=== PATIENT | female | born 1960 | race Caucasian/White ===

== ENCOUNTER 2020-04-07 15:51 | Inpatient (IN) | payer OTHER, SELFPAY ==
--- NOTE | ~2020-04-07 | XR_ITS ---
EXAMINATION: XR chest 1V portable DATE: 04/09/2020 06:03 INDICATION: Shortness of breath. COVID-19 pneumonia. TECHNIQUE: A single frontal view of the chest was obtained. COMPARISON: Chest single view 04/07/2020 FINDINGS: There are airspace opacities in all right lung zones and in left mid and lower lung zones. No pleural effusion or pneumothorax. The heart size is normal. IMPRESSION: 1. Diffuse lung disease with worsening on the right, consistent with pneumonia versus acute respirato ry distress syndrome (ARDS). Reviewed, dictated and finalized at location A. IMPRESSION: 1. Diffuse lung disease with worsening on the right, consistent with pneumonia versus acute respiratory distress syndrome (ARDS).
--- NOTE | ~2020-04-07 | XR_ITS ---
EXAMINATION: XR chest 1V portable INDICATION: Fever cough and shortness of breath, exposure to COVID TECHNIQUE: Portable AP chest at 1628 hours COMPARISON: None available FINDINGS: There are peripheral predominant airspace opacities of the lung bases and left midlung zone . No pleural effusion or pneumothorax is identified. The cardiomediastinal silhouette is normal. Thor acic dextroscoliosis is noted. IMPRESSION: 1. Bilateral airspace opacities in a distribution commonly reported with COVID-19 pneumonia. Reviewed, dictated and finalized at location A. IMPRESSION: 1. Bilateral airspace opacities in a distribution commonly reported with COVID- 19 pneumonia.
--- NOTE | ~2020-04-07 | XR_ITS ---
EXAMINATION: XR chest 1V portable DATE: 04/11/2020 05:53 INDICATION: Shortness of breath. COVID-19 pneumonia. TECHNIQUE: A single frontal view of the chest was obtained. COMPARISON: Chest single view 04/09/2020 FINDINGS: There are patchy airspace opacities in all right lung zones and in left mid and lower lung zones. No pleural effusion or pneumothorax. The heart size is normal. IMPRESSION: 1. Stable diffuse lung disease, consistent with pneumonia versus acute respiratory distress syndrome (ARDS). Reviewed, dictated and finalized at location A. IMPRESSION: 1. Stable diffuse lung disease, consistent with pneumonia versus acute respirat ory distress syndrome (ARDS).
[2020-04-07 16:04] VITALS: BP 123/84; PULSE 87; RESP 20; TEMP 37.2; O2SAT 97
--- NOTE | 2020-04-07 16:09 | ECG_ITS ---
Measurements Intervals [place] Rate: 86 P: 76 NM: 139 QRS: 20 QRSD: 92 T: 31 QT: 340 QTc: 409 Interpretive Statements SINUS RHYTHM BORDERLINE ST ABNORMALITY- DIFFUSE LEADS BORDERLINE ECG Electronically Signed On 04-08-2020 6:56:09 CDT by Truman Rubio D.O.
--- NOTE | 2020-04-07 16:50 | ED.FEVER ---
HPI - Fever General Chief Complaint: Fever <NICOLE Cordero Last Filed: 04/07/20 23:56> Stated Complaint: cough, fever, sob <NICOLE Cordero Last Filed: 04/07/20 23:56> Time Seen by Provider: 04/07/20 16:39 <NICOLE Cordero Last Filed: 04/07/20 23:56> Source: patient and family <NICOLE Cordero Last Filed: 04/07/20 23:56> Mode of arrival: wheelchair <NICOLE Cordero Last Filed: 04/07/20 23:56> Limitations: no limitations <NICOLE Cordero Last Filed: 04/07/20 23:56> History of Present Illness HPI Narrative: This is a 60-year-old woman that presents the emergency department for shortness of breath x5 days. Associated with fever, body aches and cough. Reports her was recently discharged from the hospital after being hospitalized for COVID pneumonia. Reports she has finished a course of azithromycin without relief. Reports she is currently taking Plaquenil. <NICOLE Cordero Last Filed: 04/07/20 23:56> Related Data Home Medications: Home Medications Medication Instructions Recorded Confirmed amitriptyline 25 mg PO TID 04/07/20 04/07/20 diazepam 2 mg PO Q6-8H PRN 04/07/20 04/07/20 esomeprazole magnesium 40 mg PO DAILY 04/07/20 04/07/20 hydroxychloroquine 400 mg PO DAILY 04/07/20 04/07/20 mometasone-formoterol [Dulera] 2 puff INHALATION BID 04/07/20 04/07/20 montelukast 10 mg PO DAILY 04/07/20 04/07/20 tramadol 50 mg PO Q6H PRN 04/07/20 04/07/20 <NICOLE Cordero Last Filed: 04/07/20 23:56> Allergies/Adverse Reactions: Allergies Allergy/AdvReac Type Severity Reaction Status Date / Time Sulfa (Sulfonamide Allergy Itching Verified 04/07/20 17:27 Antibiotics) <Marlin Santoyo PA-C - Last Filed: 04/07/20 23:56> Review of Systems Review of Systems: Narrative: CONSTITUTIONAL: Reports fever, chills CARDIOVASCULAR: Denies chest pain RESPIRATORY: Reports cough and dyspnea. GASTROINTESTINAL: Reports nausea NEUROLOGIC: Reports weakness. <Marlin Santoyo PA-C - Last Filed: 04/07/20 23:56> All systems reviewed & are unremarkable except as noted in HPI and below <Marlin Santoyo PA-C - Last Filed: 04/07/20 23:56> [facility] Past Medical History Medical History: Medical History (Updated 04/07/20 @ 23:56 by Marlin Santoyo PA-C) Atypical migraine Chronic GERD Generalized anxiety disorder History of mitral valve prolapse History of reactive airway disease <Marlin Santoyo PA-C - Last Filed: 04/07/20 23:56> Surgical History Surgical History: Surgical History (Updated 04/07/20 @ 22:02 by Mel Arvizu NP) History of appendectomy History of tonsillectomy Hx of cholecystectomy <Marlin Santoyo PA-C - Last Filed: 04/07/20 23:56> Family History Family History: Family History (Updated 04/07/20 @ 22:03 by Mel Arvizu NP) Father Heart disease Sibling Hypertension <Marlin Santoyo PA-C - Last Filed: 04/07/20 23:56> Social History Social History: Social History (Updated 04/07/20 @ 22:14 by Mel Arvizu NP) Social History: 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 She lives with her who is also registered nurse. She has 2 biological children and her has 2 children as well. The patient desires to be a full code. She desires to have her has been as the power trial attorney for healthcare. Patient stated that she smoked when she was in nursing school about half a pack a cigarettes a day. And has quit since then. No alcohol marijuana or illicit drugs. Smoking packs per day: 0.5 Smoking cigarettes per day: 10.0 Years smoked: 5 Smoking pack-years: 2.50 Smoking status: Former smoker Tobacco type: cigarettes Alcohol intake: former Substance use: never Living arrangements: with family Occupation/Education: occupation Gender identity (if verbalized by the patient): Female Spiritual care concerns: No
[2020-04-07 17:01] LABS: Basophils Percent Auto 0.2 % (0.2-1.2); Eosinophils Percent Auto 0.2 % (0-4.4); Hematocrit 39.8 % (37.0-47.0); Hemoglobin 12.3 g/dL (12.0-15.0); Immature Granulocyte Absolute 0.04 K/mm3 (0.00-0.031); Immature Granulocyte Percent A 0.4 % (0-0.5); Lymphocytes Absolute Auto 0.65 K/mm3 (0.9-3.2); Lymphocytes Percent Auto 6.4 % (18.3-44.2); Mean Corpuscular HGB Conc 30.9 g/dl (32-36); Mean Corpuscular Hemoglobin 26.3 pg (26-34); Mean Corpuscular Volume 85.2 fl (80-100); Mean Platelet Volume 9.9 fl (7.4-10.4); Monocytes Absolute Auto 0.3 K/mm3 (0.1-0.6); Monocytes Percent Auto 2.9 % (2.6-8.5); Neutrophils Absolute Auto 9.1 K/mm3 (1.3-6.7); Neutrophils Percent Auto 89.9 % (45.5-73.1); Platelet Count Result 372 k/mm3 (150-375); Red Blood Count 4.67 M/mm3 (4.2-5.4); Red Cell Distribution Width 15.3 % (11.5-14.5); White Blood Count 10.1 K/mm3 (4.5-10.0)
[2020-04-07] MEDS: ONDANSETRON INJ 4 MG/2 ML VIAL IV PUSH (17:02)
[2020-04-07 17:11] LABS: Prothrombin Time 13.3 Seconds (11.1-14.7)
[2020-04-07 17:12] LABS: Partial Thromboplastin Time 31.8 SECONDS (22.3-36.8)
[2020-04-07 17:13] LABS: Lactic Acid Reflex 1.3 mmol/L (0.7-2.1)
[2020-04-07 17:14] LABS: D Dimer 0.58 ug/mL (<0.48)
[2020-04-07 17:26] LABS: Troponin I < 0.012 ng/mL (0.000-0.034)
[2020-04-07 17:31] LABS: Alanine Aminotransferase 48 U/L (4-35); Alkaline Phosphatase 214 U/L (38-126); Aspartate Amino Transferase 71 U/L (14-36); Bilirubin,Total 0.6 mg/dL (0.2-1.3); Blood Urea Nitrogen 13 mg/dL (7-17); CRP > 9.0 mg/dL (<1.0); Calcium 8.8 mg/dL (8.4-10.2); Carbon Dioxide 28 mmol/L (22-30); Chloride 102 mmol/L (98-107); Estimated CRCL calculation 79 ml/min; Estimated Glomerular Filt Rate > 60; Glucose 105 mg/dL (65-105); Lactate Dehydrogenase 991 U/L (313-618); Potassium 3.3 mmol/L (3.4-5.0); Sodium 137 mmol/L (137-145)
[2020-04-07 17:33] LABS: Alveolar/Arterial O2 Gradient 98.2 mmHg; Base Excess ABG 2.6 mEq/l (+/-2.0); Carboxyhemoglobin 0.7 % THb (0-2.0); Fractional Inspired Oxygen 28 %; HCO3 ABG 25.4 mEq/l (22.0-26.0); Methemoglobin ABG 0.3 %THb (0-1.5); Oxygen Content ABG 15.5 %vol (16.0-22.0); Oxygen Saturation ABG 93.9 % (95.0-100.0); PCO2 ABG 33.1 mmHg (35.0-45.0); PO2 ABG 62.4 mmHg (80.0-100.0); PO2 FiO2 Ratio Arterial Blood 2.23 %; pH ABG 7.503 (7.350-7.450)
[2020-04-07 17:34] LABS: Device NASAL CANNULA; Modified Allen's Test Pass; Site Drawn RIGHT BRACHIAL
[2020-04-07 17:40] VITALS: BP 103/69; PULSE 87; RESP 20; O2SAT 95
[2020-04-07] MEDS: POTASSIUM CHLORIDE 20 MEQ TABLET 40 MEQ PO (18:47)
[2020-04-07 21:45] VITALS: PULSE 74
[2020-04-07 22:00] VITALS: BP 108/76; PULSE 77; RESP 24; TEMP 36.6; O2SAT 95
--- NOTE | 2020-04-07 22:01 | PM.IMHP ---
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 The patient stated that her was just discharged to home from this hospital on oxygen with a positive COVID test. Her had been exposed to covid 19 during a code. The patient has been running a fever for 5 days. She has had a nonproductive cough. She says her stomach feels upset but she thinks it is just because she has not eaten. No nausea vomiting otherwise. She has body aches and chills. She was short of breath. For primary care doctor gave her an inhaler due to her history of having reactive airway disease. She also has already completed dose of a Z-Solitario. She said that upsets her stomach. The patient is already taking Plaquenil. Her liver enzymes are elevated. Her chest x-ray was read as bilateral airspace opacities in the distribution calmly reported with covid 19 pneumonia. O2 was applied at 2 L per nasal cannula. COVID test is pending and patient was placed in isolation. Was given a Zithromax and Rocephin. She is also given Valium in the emergency room. She was given Tylenol for fever as well. I discussed this case with the circuit court magistrate who stated that we should not continue the a Zithromax and as it was stay and her system for 1 month. She was given oral potassium in the emergency room. Her LDH was noted to be 991. C reactive protein greater than 9. The patient stated she was waiting for her appointment to take the COVID test. She was not able to get in to be tested any sooner. She said the test for appointment. Date of service 04/07/2020 Patient stated she has a sore throat but that is only due to dry mouth. Review of Systems Review of Systems: All systems reviewed & are unremarkable except as noted in HPI and below Constitutional: Constitutional: Reports as per HPI and Reports no additional constitutional complaints Eyes: Eyes: Reports as per HPI and Reports no additional eye complaints ENT: Reports system reviewed and no additional complaints, except as documented and Reports Normal hearing present Cardiovascular: Cardiovascular: Reports no additional cardiovascular complaints Respiratory: Respiratory: Reports no additional respiratory complaints and Reports no additional respiratory complaints Gastrointestinal: Gastrointestinal: Reports as per HPI and Reports no additional gastrointestinal complaints Musculoskeletal: Musculoskeletal: Reports no additional musculoskeletal complaints Integumentary/Breasts: Skin/Breast: Reports system reviewed and no additional complaints, except as docu and Reports as per HPI Neurologic: Reports system reviewed and no additional complaints, except as documented, Reports as per HPI and Reports Normal hearing present Psychiatric: Psychiatric: Reports no additional psychiatric complaints and Reports as per HPI Endocrine: Endocrine: Reports no additional endocrine complaints Hematologic/Lymphatic: Hematologic/Lymphatic: Reports no additional hematologic/lymphatic complaints Allergic/Immunologic: Allergic/Immunologic: Reports no additional allergic/immunologic complaints [facility] Past Medical History Medical History (Updated 04/07/20 @ 22:16 by Mel Arvizu NP) Atypical migraine Chronic GERD Generalized anxiety disorder History of mitral valve prolapse History of reactive airway disease Surgical History Surgical History (Updated 04/07/20 @ 22:02 by Mel Arvizu NP) History of appendectomy History of tonsillectomy Hx of cholecystectomy Family History Family History (Updated 04/07/20 @ 22:03 by Mel Arvizu NP) Father Heart disease Sibling Hypertension Social History Social History (Updated 04/07/20 @ 22:14 by Mel Arvizu NP) Social History: 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 She lives with her who
[2020-04-07 22:28] VITALS: BMI 32.5
--- NOTE | 2020-04-07 22:30 | ADMGEN ---
This patient, Clarisa Terry, was admitted to [facility] Surg Room 329-01. Patient/family oriented to hospital policies and general routines including ID bracelet, bed and alarms, visiting hours, pain management, procedures, bathroom and other care routines, personal items, smoking policy, room service/diet, and visiting hours. Valuables list has been completed. Information on how to activate the Rapid Response Team has been discussed. Patient/Family are encouraged to report perceived risks to care and to ask questions if they do not understand what they are told or what they should do.
[2020-04-08] VITALS (14 sets, daily range): BP systolic 97–114; BP diastolic 55–76; PULSE 75–92; RESP 18–24; TEMP 36.6–37.4; O2SAT 78–99
[2020-04-08] MEDS: ACETAMINOPHEN 325 MG TABLET 650 MG PO ×3 (01:24→23:17)
[2020-04-08 01:49] LABS: Add Urine Microscopic? YES; Appearance Urine Clear (Clear); Bacteria Urine Trace /hpf; Bilirubin Urine Negative (Negative); Blood Urine Negative (Negative); Color Urine Yellow (Yellow); Glucose Urine UA Negative (Negative); Ketones Urine Trace mg/dL (Negative); Leukocyte Esterase Ur Negative LEU/UL (Negative); Mucus Urine Rare /lpf; Nitrate Urine Negative (Negative); Protein Urine 1+ mg/dL (Negative); RBC Urine 0-2 /hpf (0-2); Specific Grav Ur 1.018 (1.001-1.035); Squamous Epithelial Cell Urine Few /hpf (Few); Urobilinogen Urine Negative mg/dL (<2.0); WBC Urine 0-3 /hpf
[2020-04-08 06:00] LABS: Basophils Percent Auto 0.1 % (0.2-1.2); Eosinophils Percent Auto 0.4 % (0-4.4); Hematocrit 35.7 % (37.0-47.0); Immature Granulocyte Absolute 0.03 K/mm3 (0.00-0.031); Immature Granulocyte Percent A 0.4 % (0-0.5); Lymphocytes Absolute Auto 0.93 K/mm3 (0.9-3.2); Lymphocytes Percent Auto 13.2 % (18.3-44.2); Mean Corpuscular HGB Conc 30.8 g/dl (32-36); Mean Corpuscular Hemoglobin 25.9 pg (26-34); Mean Platelet Volume 9.2 fl (7.4-10.4); Monocytes Absolute Auto 0.3 K/mm3 (0.1-0.6); Monocytes Percent Auto 4.8 % (2.6-8.5); Neutrophils Absolute Auto 5.7 K/mm3 (1.3-6.7); Neutrophils Percent Auto 81.1 % (45.5-73.1); Platelet Count Result 367 k/mm3 (150-375); Red Blood Count 4.25 M/mm3 (4.2-5.4); Red Cell Distribution Width 14.9 % (11.5-14.5); White Blood Count 7.1 K/mm3 (4.5-10.0)
[2020-04-08 06:24] LABS: Alanine Aminotransferase 43 U/L (4-35); Albumin Level 3.5 g/dL (3.5-5.1); Alkaline Phosphatase 179 U/L (38-126); Aspartate Amino Transferase 55 U/L (14-36); Bilirubin,Total 0.4 mg/dL (0.2-1.3); Blood Urea Nitrogen 11 mg/dL (7-17); Calcium 8.5 mg/dL (8.4-10.2); Carbon Dioxide 28 mmol/L (22-30); Chloride 102 mmol/L (98-107); Estimated CRCL calculation 79 ml/min; Estimated Glomerular Filt Rate > 60; Glucose 105 mg/dL (65-105); Magnesium 1.9 mg/dL (1.6-2.3); Sodium 138 mmol/L (137-145)
[2020-04-08 06:36] LABS: CRP 20.6 mg/dL (<1.0)
--- NOTE | 2020-04-08 06:51 | PC.NURSE ---
0645 SpO2 sats on monitor 83%, RN assessed patient, Patient reports having ambulated to bathroom, causing coughing fit. O2 at 2 lpm/NC placed on patient. Positioned patient on her left side, O2 sats increasing to 92%.
[2020-04-08] MEDS: AMITRIPTYLINE HCL 25 MG TABLET PO ×3 (08:58→17:46)
[2020-04-08] MEDS: HYDROXYCHLOROQUINE SULFATE 200 MG TABLET 400 MG PO (08:59)
[2020-04-08] MEDS: PANTOPRAZOLE 40 MG TABLET PO (08:59)
[2020-04-08] MEDS: MONTELUKAST SODIUM 10 MG TABLET PO (08:59)
[2020-04-08] MEDS: ENOXAPARIN 40 MG/0.4 ML SYRINGE SUB-Q (08:59)
--- NOTE | 2020-04-08 09:19 | PM.IMPN ---
Progress Note: A&P Assessment and Plan (1) Suspected COVID-19 virus infection: Code(s): Z20.828 - Contact with and (suspected) exposure to other viral communicable diseases Status: Acute Assessment and Plan: She was seen by her PCP and started on Plaquenil and azithromycin for a 13 day course. She has completed 9 days of both medications. Her was recently hospitalized with COVID-19. She complains of productive cough and shortness of breath. She has been afebrile since presentation. Continue isolation precautions. COVID-19 test is pending Continue ceftriaxone Azithromycin was stopped as patient has completed 9 days. Continue hydroxychloroquine Continue supplemental O2 with goal saturation 92% or above. Wean to goal. Continue Symbicort inhaler scheduled and albuterol inhaler as needed. Continue acetaminophen as needed for fever or pain Continue to trend acute phase reactants and chest x-ray. (2) Community acquired pneumonia: Code(s): J18.9 - Pneumonia, unspecified organism Status: Acute Assessment and Plan: CXR suspicious for pneumonia, possibly related to COVID-19. Sputum cultures have been ordered and will attempt collection Blood cultures pending Begin Mucinex as needed to mobilize secretions Continue symptomatic care as above (3) Atypical migraine: Code(s): G43.009 - Migraine without aura, not intractable, without status migrainosus Status: Chronic Assessment and Plan: She complains of headache today but it is not her usual migraine headache Continue amitriptyline (4) Chronic GERD: Code(s): K21.9 - Gastro-esophageal reflux disease without esophagitis Status: Chronic Assessment and Plan: She is asymptomatic at this time Continue Protonix (5) Generalized anxiety disorder: Code(s): F41.1 - Generalized anxiety disorder Status: Chronic Assessment and Plan: Stable at this time. Continue diazepam as needed (6) History of reactive airway disease: Code(s): Z87.09 - Personal history of other diseases of the respiratory system Status: Chronic Assessment and Plan: Patient was recently evaluated with pulmonary function testing and diagnosed with reactive airway disease approximately 6 months ago. Continue Singulair and Symbicort Subjective Date/time seen: 04/08/20 09:19 Interval history: Date of service: 04/08/2020 Ms. mayorga her continues to endorse shortness of breath. She has associated cough productive of clear sputum. She endorses vomiting following episodes of coughing. She also endorses nausea, but believes this is because she has not eaten much. Her appetite has been poor since the onset of her symptoms. She denies pleuritic chest pain. She denies palpitation, dizziness, lightheadedness, or diaphoresis. She does endorse occasional chills and mild headache. She has diarrhea that has been ongoing for approximately 4 days. Her stool is liquid brown and without foul odor. She denies associated abdominal pain or cramping. She denies urinary symptoms. She is ambulating around the room. She is able to lay flat without difficulty. Review of Systems Review of Systems: Narrative: A 12 point review of systems was reviewed with pertinent positives and negatives as per HPI. Exam Narrative: Exam Narrative: Ms. Terry is examined alone today. She is a well-nourished 60-year-old female who is lying semi recumbent in bed. She appears comfortable and is in no acute respiratory distress. HR 78, BP 103/74, RR 24, T 99.3?, 97% on 2 L O2 Neuro: awake, alert and oriented x4, speech clear, no focal neuro deficits noted HEENMT: normocephalic, atraumatic, EOMI, sclerae anicteric, moist oral mucosa, normal oropharynx Neck: supple, no lymphadenopathy Respiratory: Diminished breath sounds bilaterally without crackles, rhonchi or wheezes, normal respiratory effo
[2020-04-08] MEDS: CALCIUM CARBONATE (TUMS) 500 MG (200 MG ELEMENTAL) PO (11:56)
[2020-04-08 17:31] LABS: SARS-CoV-2 RNA PCR Positive
[2020-04-08] MEDS: SACCHAROMYCES BOULARDII 250 MG CAPSULE PO (17:45)
--- NOTE | 2020-04-08 17:47 | PC.NURSE ---
Notified Teressa MCDONNELL of patients positive COVID test. No new orders were obtained.
[2020-04-08] MEDS: ONDANSETRON INJ 4 MG/2 ML VIAL IV PUSH (17:50)
[2020-04-09] VITALS (15 sets, daily range): BP systolic 102–110; BP diastolic 54–74; PULSE 72–102; RESP 16–20; TEMP 36.3–37.4; O2SAT 91–97
[2020-04-09] MEDS: RIZATRIPTAN BENZOATE 10 MG TABLET PO ×3 (04:56→23:58)
[2020-04-09 06:01] LABS: Basophils Percent Auto 0.1 % (0.2-1.2); Eosinophils Absolute Auto 0.1 K/mm3 (0-0.3); Eosinophils Percent Auto 0.7 % (0-4.4); Hematocrit 35.8 % (37.0-47.0); Immature Granulocyte Absolute 0.03 K/mm3 (0.00-0.031); Immature Granulocyte Percent A 0.4 % (0-0.5); Lymphocytes Absolute Auto 0.88 K/mm3 (0.9-3.2); Lymphocytes Percent Auto 10.9 % (18.3-44.2); Mean Corpuscular HGB Conc 30.7 g/dl (32-36); Mean Corpuscular Hemoglobin 25.9 pg (26-34); Mean Corpuscular Volume 84.4 fl (80-100); Monocytes Absolute Auto 0.5 K/mm3 (0.1-0.6); Monocytes Percent Auto 6.1 % (2.6-8.5); Neutrophils Absolute Auto 6.6 K/mm3 (1.3-6.7); Neutrophils Percent Auto 81.8 % (45.5-73.1); Platelet Count Result 413 k/mm3 (150-375); Red Blood Count 4.24 M/mm3 (4.2-5.4); Red Cell Distribution Width 14.9 % (11.5-14.5); White Blood Count 8.1 K/mm3 (4.5-10.0)
[2020-04-09 06:06] LABS: D Dimer 0.37 ug/mL (<0.48)
[2020-04-09 06:12] LABS: Alanine Aminotransferase 38 U/L (4-35); Albumin Level 3.5 g/dL (3.5-5.1); Alkaline Phosphatase 170 U/L (38-126); Aspartate Amino Transferase 46 U/L (14-36); Bilirubin,Total 0.5 mg/dL (0.2-1.3); Blood Urea Nitrogen 9 mg/dL (7-17); Calcium 8.8 mg/dL (8.4-10.2); Carbon Dioxide 29 mmol/L (22-30); Chloride 101 mmol/L (98-107); Creatine Kinase 38 U/L (30-135); Estimated CRCL calculation 89 ml/min; Estimated Glomerular Filt Rate > 60; Glucose 111 mg/dL (65-105); Lactate Dehydrogenase 743 U/L (313-618); Sodium 137 mmol/L (137-145)
[2020-04-09 06:22] LABS: CRP 14.9 mg/dL (<1.0)
[2020-04-09] MEDS: AMITRIPTYLINE HCL 25 MG TABLET PO ×3 (07:53→17:12)
[2020-04-09] MEDS: MONTELUKAST SODIUM 10 MG TABLET PO (07:53)
[2020-04-09] MEDS: ENOXAPARIN 40 MG/0.4 ML SYRINGE SUB-Q (07:53)
[2020-04-09] MEDS: SACCHAROMYCES BOULARDII 250 MG CAPSULE PO ×2 (07:54→17:12)
[2020-04-09] MEDS: PANTOPRAZOLE 40 MG TABLET PO (07:54)
--- NOTE | 2020-04-09 07:56 | PC.NURSE ---
Teressa MCDONNELL notified of am chest xray results and labs. I advised her that patient states that she is not as short of breath and her cough is better but is complaining of migraine headache. 02 sats remain 97% on 2L/NC - titrated down from 4 L/NC last pm. Temp 99.4 at 0600. No new orders at this time - she will see patient this am.
--- NOTE | 2020-04-09 10:38 | PM.IMPN ---
Progress Note: A&P Assessment and Plan (1) COVID-19: Code(s): U07.1 - COVID-19 Status: Acute Assessment and Plan: Informed of positive result on 04/08/20. She completed 9 days of hydroxychloroquine and azithromycin prior to admission prescribed by PCP. Her was also recently hospitalized with COVID-19. She complains of productive cough and shortness of breath. She has remained afebrile. CXR today reveals diffuse lung disease worsening on the right. Her oxygen requirements have fluctuated between 1-4 L O2. Her saturation levels decrease with ambulation, eating, or coughing episodes. Continue isolation precautions. Continue ceftriaxone Azithromycin and hydroxychloroquine discontinued on 04/08 as patient has completed 9 days. Continue supplemental O2 with goal saturation 92% or above. Wean to goal. Monitor oxygen saturation closely. Continue Symbicort inhaler scheduled and albuterol inhaler as needed. Will add cornet device and scheduled mucinex to mobilize secretions Continue acetaminophen as needed for fever or pain Continue to trend acute phase reactants (2) Community acquired pneumonia: Qualifiers: Laterality: unspecified laterality Qualified Code(s): J18.9 - Pneumonia, unspecified organism Code(s): J18.9 - Pneumonia, unspecified organism Status: Acute Assessment and Plan: CXR reveals pneumonia related to COVID-19. Sputum cultures have been ordered and will attempt collection Blood cultures pending Continue symptomatic care as above (3) Atypical migraine: Code(s): G43.009 - Migraine without aura, not intractable, without status migrainosus Status: Chronic Assessment and Plan: She developed a migraine early this morning. She has had two doses of Maxalt and believes it is improving. She typically gets migraines weekly to monthly. Continue amitriptyline Repeat maxalt tomorrow x2 if needed Continue supportive care including quiet, dark room and ice pack for neck Continue antiemetics prn (4) Chronic GERD: Code(s): K21.9 - Gastro-esophageal reflux disease without esophagitis Status: Chronic Assessment and Plan: She is asymptomatic at this time Continue Protonix (5) Generalized anxiety disorder: Code(s): F41.1 - Generalized anxiety disorder Status: Chronic Assessment and Plan: Stable at this time. Continue diazepam as needed (6) History of reactive airway disease: Code(s): Z87.09 - Personal history of other diseases of the respiratory system Status: Chronic Assessment and Plan: Patient was recently evaluated with pulmonary function testing and diagnosed with reactive airway disease approximately 6 months ago. Continue Singulair and Symbicort Subjective Date/time seen: 04/09/20 10:38 Interval history: Date of service: 04/09/2020 Reports she is feeling well today. She developed a migraine overnight. She states she typically gets migraines once a week to once a month and she believes it is somewhat improving already. She reports associated mild dizziness. She continues to have productive cough. She has coughing spells when she is ambulating or if she takes a deep breath. She was able to sleep through the night lying flat without a coughing fit. She feels short of breath and describes chest pressure only when coughing. She denies nausea or vomiting. Her appetite has been fair. She denies urinary symptoms. She continues to endorse diarrhea but is having episodes less frequently and believes her stools are becoming more formed. Review of Systems Review of Systems: Narrative: A 12 point review of systems was reviewed with pertinent positives and negatives as per HPI. Exam Narrative: Exam Narrative: Ms. Terry is examined alone today. She is a well-nourished 60-year-old female who is lying semi recumbent in bed. She appears comfortable and is in
[2020-04-09 12:03] LABS: Lactate Dehydrogenase 693 U/L (313-618)
[2020-04-09] MEDS: ACETAMINOPHEN 325 MG TABLET 650 MG PO (20:16)
[2020-04-09] MEDS: DIAZEPAM 2 MG TABLET PO (23:53)
[2020-04-10] VITALS (33 sets, daily range): BP systolic 109–117; BP diastolic 62–71; PULSE 73–106; RESP 18–32; TEMP 36.9–37.4; O2SAT 77–98
[2020-04-10 06:06] LABS: Basophils Percent Auto 0.1 % (0.2-1.2); Eosinophils Absolute Auto 0.1 K/mm3 (0-0.3); Hematocrit 35.2 % (37.0-47.0); Immature Granulocyte Absolute 0.03 K/mm3 (0.00-0.031); Immature Granulocyte Percent A 0.4 % (0-0.5); Lymphocytes Absolute Auto 0.85 K/mm3 (0.9-3.2); Lymphocytes Percent Auto 10.2 % (18.3-44.2); Mean Corpuscular HGB Conc 31.3 g/dl (32-36); Mean Corpuscular Hemoglobin 26.4 pg (26-34); Mean Corpuscular Volume 84.4 fl (80-100); Monocytes Absolute Auto 0.6 K/mm3 (0.1-0.6); Monocytes Percent Auto 7.3 % (2.6-8.5); Neutrophils Absolute Auto 6.7 K/mm3 (1.3-6.7); Platelet Count Result 477 k/mm3 (150-375); Red Blood Count 4.17 M/mm3 (4.2-5.4); Red Cell Distribution Width 15.1 % (11.5-14.5); White Blood Count 8.3 K/mm3 (4.5-10.0)
[2020-04-10 06:23] LABS: Potassium 3.2 mmol/L (3.4-5.0)
[2020-04-10 06:31] LABS: Alanine Aminotransferase 40 U/L (4-35); Albumin Level 3.4 g/dL (3.5-5.1); Alkaline Phosphatase 156 U/L (38-126); Aspartate Amino Transferase 43 U/L (14-36); Bilirubin,Total 0.6 mg/dL (0.2-1.3); Blood Urea Nitrogen 9 mg/dL (7-17); Calcium 8.7 mg/dL (8.4-10.2); Carbon Dioxide 31 mmol/L (22-30); Chloride 100 mmol/L (98-107); Creatine Kinase 31 U/L (30-135); Estimated CRCL calculation 102 ml/min; Estimated Glomerular Filt Rate > 60; Glucose 103 mg/dL (65-105); Sodium 137 mmol/L (137-145)
[2020-04-10] MEDS: POTASSIUM CHLORIDE 20 MEQ TABLET 40 MEQ PO (08:50)
[2020-04-10] MEDS: AMITRIPTYLINE HCL 25 MG TABLET PO ×3 (08:50→17:05)
[2020-04-10] MEDS: SACCHAROMYCES BOULARDII 250 MG CAPSULE PO ×2 (08:50→17:05)
[2020-04-10] MEDS: MONTELUKAST SODIUM 10 MG TABLET PO (08:51)
[2020-04-10] MEDS: ENOXAPARIN 40 MG/0.4 ML SYRINGE SUB-Q (08:51)
--- NOTE | 2020-04-10 09:32 | PM.IMPN ---
Progress Note: A&P Assessment and Plan (1) COVID-19: Code(s): U07.1 - COVID-19 Status: Acute Assessment and Plan: Informed of positive result on 04/08/20. She completed 9 days of hydroxychloroquine and azithromycin prior to admission prescribed by PCP. Her was also recently hospitalized with COVID-19. She complains of productive cough and shortness of breath. She has remained afebrile. CXR 04/09 reveals diffuse lung disease worsening on the right. Her oxygen requirements have fluctuated between 1-4 L O2. Her saturation levels have declined with ambulation, eating, or coughing episodes. She has remained stable on 2L since yesterday with O2 sat 91-96%. Continue isolation precautions. Continue ceftriaxone. Initiated on 04/07/20. Will complete 5 day course. Azithromycin and hydroxychloroquine discontinued on 04/08 as patient has completed 9 days. Continue supplemental O2 with goal saturation 92% or above. Wean to goal. Monitor oxygen saturation closely. Continue Symbicort inhaler scheduled and albuterol inhaler as needed. Continue cornet device and scheduled mucinex to mobilize secretions Continue to trend acute phase reactants. Levels have overall tredned downward. CRP fluctuant but relatively stable. Will obtain CXR tomorrow to monitor progression. Order walking trial to evaluate home oxygen requirements. Hopeful discharge in 1-2 days dependent on stable oxygen saturations and improvement of symptoms. (2) Community acquired pneumonia: Qualifiers: Laterality: unspecified laterality Qualified Code(s): J18.9 - Pneumonia, unspecified organism Code(s): J18.9 - Pneumonia, unspecified organism Status: Acute Assessment and Plan: CXR reveals pneumonia related to COVID-19. Sputum cultures have been ordered and will attempt collection Final blood cultures pending. Preliminary cultures with NGTD. 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 She had two doses of Maxalt which improved her migraine. She typically gets migraines weekly to monthly. She required an additional dose of Maxalt last night. Continue amitriptyline Add Maxalt 10 mg x1 prn Continue supportive care including quiet, dark room and ice pack for neck Continue antiemetics prn (4) Acute hypokalemia: Code(s): E87.6 - Hypokalemia Status: Acute Assessment and Plan: At presentation, patient was hypokalemic with K 3.3. Levels improved with 40 mEq PO Kcl. Today, K is 3.2. This may be related to ongoing diarrhea. Administer 40 mEq KCl Continue to monitor potassium level (5) Oropharyngeal candidiasis: Code(s): B37.0 - Candidal stomatitis Status: Acute Assessment and Plan: Today patient complained of dry mouth and altered taste. Exam reveals thin white patches on buccal mucosa and tongue. I suspect this is related to antibiotic therapy as well as inhaled steroids. Patient is not on immunosuppressants and is not immunocompromised. Begin nystatin swish and swallow Rinse thoroughly after inhaled steroid treatment and use spacer (6) Thrombocytosis: Code(s): D47.3 - Essential (hemorrhagic) thrombocythemia Status: Acute Assessment and Plan: Patient initially presented with platelets at 372. Levels have increased slowly and today plt 477. I suspect this is an acute phase reactant to viral illness. She is hemodynamically stable. Continue to monitor levels closely (7) Generalized anxiety disorder: Code(s): F41.1 - Generalized anxiety disorder Status: Chronic Assessment and Plan: Stable at this time. She did require a dose of diazepam last night. Continue diazepam as needed (8) History of reactive airway disease: Tammie
--- NOTE | 2020-04-10 10:10 | PC.NURSE ---
Addendum entered by Jazmyn Urbano RN 04/10/20 16:38: Teressa MCDONNELL notified. Original Note: Summary- Pt started coughing while respiratory at bedside .Respiratory unable to give inhaler do to coughing. Pt O2 Sat dropped to low 80's pt O2Sat did not go up O2 increased to 4L NC then 6L NC. Pt O2 Sat 87% )O2 decreased to 4L. O2 decreases to 2L )2 Sat 96%.
[2020-04-10] MEDS: PANTOPRAZOLE 40 MG TABLET PO (10:30)
[2020-04-10] MEDS: NYSTATIN 100,000 UNITS/ML SUSP 5 ML ORAL.SUSP PO ×3 (12:45→20:21)
--- NOTE | 2020-04-10 16:18 | PC.NURSE ---
I contacted Teressa Stephen to review patient status and ongoing plan for care. Also reviewed time period of onset of symptoms 8 days ago. Notified by Dion Urbano RN and Gonzalo Quintanilla of desaturation while sitting in chair on 02 at 4L/NC requiring titration up to 6L/NC then NRB mask over 15-20 minute period to regain saturation of 94-96%. Patient is currently on 02 at 4L/NC again with saturation level 95%. Patient resting quietly in bed now and denies SOB except after coughing. Continue to monitor closely and advise MD of changes. Remains on tele with continuous pulse ox monitoring. Teressa will discuss with Dr Reeves and return call for any additional orders.
[2020-04-10] MEDS: BENZONATATE 100 MG CAPSULE PO (17:47)
[2020-04-10] MEDS: DIAZEPAM 2 MG TABLET PO (20:24)
[2020-04-11] VITALS (26 sets, daily range): BP systolic 93–110; BP diastolic 54–72; PULSE 67–93; RESP 18–24; TEMP 36.2–37.3; O2SAT 84–98
[2020-04-11 05:57] LABS: Basophils Percent Auto 0.1 % (0.2-1.2); Eosinophils Absolute Auto 0.1 K/mm3 (0-0.3); Eosinophils Percent Auto 1.7 % (0-4.4); Hematocrit 34.1 % (37.0-47.0); Hemoglobin 10.4 g/dL (12.0-15.0); Immature Granulocyte Absolute 0.07 K/mm3 (0.00-0.031); Immature Granulocyte Percent A 0.9 % (0-0.5); Lymphocytes Absolute Auto 1.06 K/mm3 (0.9-3.2); Lymphocytes Percent Auto 13.7 % (18.3-44.2); Mean Corpuscular HGB Conc 30.5 g/dl (32-36); Mean Corpuscular Volume 85.3 fl (80-100); Mean Platelet Volume 9.1 fl (7.4-10.4); Monocytes Absolute Auto 0.8 K/mm3 (0.1-0.6); Monocytes Percent Auto 10.5 % (2.6-8.5); Neutrophils Absolute Auto 5.7 K/mm3 (1.3-6.7); Neutrophils Percent Auto 73.1 % (45.5-73.1); Platelet Count Result 526 k/mm3 (150-375); Red Cell Distribution Width 14.9 % (11.5-14.5); White Blood Count 7.7 K/mm3 (4.5-10.0)
[2020-04-11 06:08] LABS: D Dimer 0.45 ug/mL (<0.48)
[2020-04-11 06:25] LABS: Alanine Aminotransferase 33 U/L (4-35); Albumin Level 3.2 g/dL (3.5-5.1); Alkaline Phosphatase 159 U/L (38-126); Aspartate Amino Transferase 33 U/L (14-36); Bilirubin,Total 0.5 mg/dL (0.2-1.3); Blood Urea Nitrogen 10 mg/dL (7-17); Calcium 8.8 mg/dL (8.4-10.2); Carbon Dioxide 30 mmol/L (22-30); Chloride 102 mmol/L (98-107); Estimated CRCL calculation 89 ml/min; Estimated Glomerular Filt Rate > 60; Glucose 104 mg/dL (65-105); Potassium 3.6 mmol/L (3.4-5.0); Sodium 138 mmol/L (137-145)
[2020-04-11 07:24] LABS: Lactate Dehydrogenase 529 U/L (313-618)
[2020-04-11 07:50] LABS: CRP 15.6 mg/dL (<1.0)
[2020-04-11] MEDS: SACCHAROMYCES BOULARDII 250 MG CAPSULE PO ×2 (08:03→17:12)
[2020-04-11] MEDS: BENZONATATE 100 MG CAPSULE PO ×2 (08:03→17:31)
[2020-04-11] MEDS: ENOXAPARIN 40 MG/0.4 ML SYRINGE SUB-Q (08:03)
[2020-04-11] MEDS: MONTELUKAST SODIUM 10 MG TABLET PO (08:04)
[2020-04-11] MEDS: AMITRIPTYLINE HCL 25 MG TABLET PO ×3 (08:04→17:12)
[2020-04-11] MEDS: PANTOPRAZOLE 40 MG TABLET PO (08:04)
[2020-04-11] MEDS: NYSTATIN 100,000 UNITS/ML SUSP 5 ML ORAL.SUSP PO ×4 (08:05→20:31)
--- NOTE | 2020-04-11 11:35 | PM.IMPN ---
Progress Note: A&P Assessment and Plan (1) COVID-19: Code(s): U07.1 - COVID-19 Status: Acute Assessment and Plan: Informed of positive result on 04/08/20. She completed 9 days of hydroxychloroquine and azithromycin prior to admission prescribed by PCP. Her was also recently hospitalized with COVID-19. She has remained afebrile. CXR 04/09 reveals diffuse lung disease worsening on the right and repeat CXR today reveals stable diffuse lung disease. On 04/10, she had a brief episode of hypoxia following a coughing episode which required her to use a non-rebreather for approximately 10 minutes. Today, she has required 1-3 L and has been stable with the exception of a brief episode of hypoxia following inhaler use. Continue isolation precautions. Continue ceftriaxone. Initiated on 04/07/20. Will complete 5 day course. Azithromycin and hydroxychloroquine discontinued on 04/08 as patient has completed 9 days. Continue supplemental O2 with goal saturation 92% or above. Wean to goal. Monitor oxygen saturation closely with continuous pulse ox. Continue Symbicort inhaler scheduled and albuterol inhaler as needed. Continue cornet device and scheduled mucinex to mobilize secretions Continue to trend acute phase reactants. Levels have overall trended downward. CRP fluctuant but relatively stable. Order walking trial to evaluate home oxygen requirements. Hopeful discharge tomorrow dependent on stable oxygen saturation/requirements. (2) Community acquired pneumonia: Qualifiers: Laterality: unspecified laterality Qualified Code(s): J18.9 - Pneumonia, unspecified organism Code(s): J18.9 - Pneumonia, unspecified organism Status: Acute Assessment and Plan: CXR reveals pneumonia related to COVID-19. Sputum cultures have been ordered and will attempt collection Final blood cultures pending. Preliminary cultures with NGTD. 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 She had two doses of Maxalt which improved her migraine. She typically gets migraines weekly to monthly. She required an additional dose of Maxalt on 04/02. Continue amitriptyline Continue Maxalt 10 mg x1 prn Continue supportive care including quiet, dark room and ice pack for neck, and antiemetics prn (4) Acute hypokalemia: Code(s): E87.6 - Hypokalemia Status: Acute Assessment and Plan: At presentation, patient was hypokalemic with K 3.3. This may be a related to ongoing loose stools. On 04/10, K declined to 3.2. Potassium is stable today. Levels improved with 40 mEq PO Kcl. Continue to monitor potassium level and replace as needed (5) Oropharyngeal candidiasis: Code(s): B37.0 - Candidal stomatitis Status: Acute Assessment and Plan: Today patient complained of dry mouth and altered taste. Exam reveals thin white patches on buccal mucosa and tongue. I suspect this is related to antibiotic therapy as well as inhaled steroids. Patient is not on immunosuppressants and is not immunocompromised. Continue nystatin swish and swallow Rinse thoroughly after inhaled steroid treatment and use spacer (6) Thrombocytosis: Code(s): D47.3 - Essential (hemorrhagic) thrombocythemia Status: Acute Assessment and Plan: Patient initially presented with platelets at 372. Levels have increased slowly and today plt 526. I suspect this is an acute phase reactant to viral illness. She is hemodynamically stable. Continue to monitor platelets (7) Generalized anxiety disorder: Code(s): F41.1 - Generalized anxiety disorder Status: Chronic Assessment and Plan: Stable at this time. Continue diazepam as needed (8) History of reactive airway disease:
--- NOTE | 2020-04-11 14:46 | HOMEO2EVAL ---
Home Oxygen Evaluation RC: Home Oxygen (O2) Evaluation Start: 04/10/20 10:12 Freq: ONCE Status: Active Protocol: RPE Activity Type Activity Date Activity User E-Sign Co-Sign Detail Recorded Client Recorded Date Recorded By Document 04/11/20 14:20 TIMOTHY [email or web address] 04/11/20 14:46 TIMOTHY Document 04/11/20 14:22 TIMOTHY [email or web address] 04/11/20 14:46 TIMOTHY Document 04/11/20 14:25 TIMOTHY [email or web address] 04/11/20 14:46 TIMOTHY Document 04/11/20 14:30 TIMOTHY [email or web address] 04/11/20 14:46 TIMOTHY Document 04/11/20 14:35 TIMOTHY [email or web address] 04/11/20 14:46 TIMOTHY 04/11/20 04/11/20 04/11/20 14:20 14:22 14:25 Home O2 Evaluation Test Phase Resting Resting Resting Oxygen Delivery Room Air Nasal Cannula Nasal Cannula Oxygen Flow Rate (L/min) 1 2 Pulse Oximetry (90-100 %) 87 L 87 L 93 Home Oxygen Evaluation Comments 04/11/20 04/11/20 14:30 14:35 Home O2 Evaluation Test Phase Exercise Resting Oxygen Delivery Nasal Cannula Nasal Cannula Oxygen Flow Rate (L/min) 2 2 Pulse Oximetry (90-100 %) 90 92 Home Oxygen Evaluation Comments PT REQUIRES 2 L WITH REST AND ACTIVITY
--- NOTE | 2020-04-11 14:47 | PCRCNOTE ---
HOME O2 EVAL DONE, PT REQUIRES 2L WITH REST AND EXERTION. PT WALKED IN ROOM. PT HAS HOME OXYGEN IN THE HOME ALREADY DUE TO HUSBANDS RECENT DX. AND HE WAS DISCHARGED WITH O2. PT WILL USE THE O2 THATS ALREADY IN THE HOME TO SAVE ON THE $200 BILL THAT COMES WITH A NEW O2 SET-UP, WELL HAVING DUPLICATE O2 EQUIPMENT IN THE HOME. RN IS AWARE. I WILL LEAVE A E-TANK OUTSIDE OF ROOM FOR TRANSPORT HOME JUST IN CASE DOESN'T BRING IT.
[2020-04-11] MEDS: DIAZEPAM 2 MG TABLET PO (20:39)
[2020-04-12] VITALS (10 sets, daily range): BP systolic 104–110; BP diastolic 70–75; PULSE 76–97; RESP 16–20; TEMP 36.6–37.5; O2SAT 88–97
[2020-04-12] MEDS: BENZONATATE 100 MG CAPSULE PO (06:45)
[2020-04-12 07:56] LABS: Basophils Percent Auto 0.2 % (0.2-1.2); Eosinophils Absolute Auto 0.1 K/mm3 (0-0.3); Eosinophils Percent Auto 1.4 % (0-4.4); Hematocrit 33.6 % (37.0-47.0); Hemoglobin 10.3 g/dL (12.0-15.0); Immature Granulocyte Absolute 0.05 K/mm3 (0.00-0.031); Immature Granulocyte Percent A 0.6 % (0-0.5); Lymphocytes Absolute Auto 1.03 K/mm3 (0.9-3.2); Lymphocytes Percent Auto 12.1 % (18.3-44.2); Mean Corpuscular HGB Conc 30.7 g/dl (32-36); Mean Corpuscular Volume 84.8 fl (80-100); Mean Platelet Volume 8.9 fl (7.4-10.4); Monocytes Absolute Auto 0.7 K/mm3 (0.1-0.6); Monocytes Percent Auto 8.6 % (2.6-8.5); Neutrophils Absolute Auto 6.5 K/mm3 (1.3-6.7); Neutrophils Percent Auto 77.1 % (45.5-73.1); Platelet Count Result 571 k/mm3 (150-375); Red Blood Count 3.96 M/mm3 (4.2-5.4); Red Cell Distribution Width 14.8 % (11.5-14.5); White Blood Count 8.5 K/mm3 (4.5-10.0)
[2020-04-12 08:29] LABS: Alanine Aminotransferase 25 U/L (4-35); Alkaline Phosphatase 152 U/L (38-126); Aspartate Amino Transferase 21 U/L (14-36); Bilirubin,Total 0.2 mg/dL (0.2-1.3); Blood Urea Nitrogen 10 mg/dL (7-17); CRP 8.7 mg/dL (<1.0); Calcium 8.6 mg/dL (8.4-10.2); Carbon Dioxide 28 mmol/L (22-30); Chloride 103 mmol/L (98-107); Creatine Kinase < 20 U/L (30-135); Estimated CRCL calculation 89 ml/min; Estimated Glomerular Filt Rate > 60; Glucose 97 mg/dL (65-105); Lactate Dehydrogenase 426 U/L (313-618); Potassium 3.3 mmol/L (3.4-5.0); Sodium 136 mmol/L (137-145)
[2020-04-12] MEDS: RIZATRIPTAN BENZOATE 10 MG TABLET PO ×2 (09:29→11:38)
[2020-04-12] MEDS: AMITRIPTYLINE HCL 25 MG TABLET PO (09:29)
[2020-04-12] MEDS: NYSTATIN 100,000 UNITS/ML SUSP 5 ML ORAL.SUSP PO (09:30)
[2020-04-12] MEDS: ENOXAPARIN 40 MG/0.4 ML SYRINGE SUB-Q (09:30)
[2020-04-12] MEDS: SACCHAROMYCES BOULARDII 250 MG CAPSULE PO (09:30)
[2020-04-12] MEDS: PANTOPRAZOLE 40 MG TABLET PO (09:30)
[2020-04-12] MEDS: MONTELUKAST SODIUM 10 MG TABLET PO (09:30)
[2020-04-12] MEDS: POTASSIUM CHLORIDE 20 MEQ TABLET 40 MEQ PO (10:23)
--- NOTE | 2020-04-12 11:47 | PM.DS ---
DS: Admitting Diagnosis Admitting Diagnosis Admitting Diagnosis: Contact with and (suspected) exposure to other viral communicable diseases DS: Discharge Diagnosis Discharge Diagnosis (1) COVID-19: Code(s): U07.1 - COVID-19 Status: Acute Assessment and Plan: Informed of positive result on 04/08/20. She completed 9 days of hydroxychloroquine and azithromycin prior to admission prescribed by PCP. Her also recently tested positive for COVID-19. She remained afebrile. She completed 5 days of IV Ceftriaxone. Acute phase reactants were monitored and normalized. On 04/10, she had a brief episode of hypoxia after a coughing episode which required use of non-rebreather for approximately 10 minutes. Following that brief episode, she remained stable on 1-3 L with very transient episodes of hypoxia when coughing. She completed a home O2 evaluation which determined she would use 2L O2 with rest and exertion. She will continue albuterol as needed. She will hold her home Dulera given active respiratory infection. She will continue Mucinex and Cornet CPT as needed. She was educated on proper isolation precautions. (2) Community acquired pneumonia: Qualifiers: Laterality: unspecified laterality Qualified Code(s): J18.9 - Pneumonia, unspecified organism Code(s): J18.9 - Pneumonia, unspecified organism Status: Acute Assessment and Plan: Pneumonia related to COVID-19. Final blood cultures with no growth. (3) Atypical migraine: Code(s): G43.009 - Migraine without aura, not intractable, without status migrainosus Status: Chronic Assessment and Plan: She developed a migraine on 04/09 which improved with Maxalt. She will continue Amitriptyline. (4) Acute hypokalemia: Code(s): E87.6 - Hypokalemia Status: Acute Assessment and Plan: Patient had episodes of hypokalemia, which may have been related to loose stools. Levels responsed to oral potassium replacement. She will repeat potassium levels in 1 week. (5) Oropharyngeal candidiasis: Code(s): B37.0 - Candidal stomatitis Status: Acute Assessment and Plan: Patient developed oropharyngeal candidiasis, most likely related to antibiotic therapy as well as inhaled corticosteroid use. Patient is not on immunosuppressants and is not immunocompromised. She was treated with nystatis swish and swallow which she will continue for 3 days. She was educated on proper rinsing of her mouth after ICS use. (6) Thrombocytosis: Code(s): D47.3 - Essential (hemorrhagic) thrombocythemia Status: Acute Assessment and Plan: Patient initially presented with platelets at 372 and steadily increased to 571 at time of discharge. I suspect this is an acute phase reactant to viral illness. She remained hemodynamically stable. (7) Generalized anxiety disorder: Code(s): F41.1 - Generalized anxiety disorder Status: Chronic Assessment and Plan: Remained stable. 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 She was recently evaluated with pulmonary function testing and diagnosed with reactive airway disease approximately 6 months ago. I advised her to hold home Dulera given active respiratory infection until follow up with PCP. She will continue albuterol as needed. (9) Chronic GERD: Code(s): K21.9 - Gastro-esophageal reflux disease without esophagitis Status: Chronic Assessment and Plan: She remained asymptomatic. She was treated with Protonix during stay. DS: Summary Hospital Course Reason for hospitalization: Cough Hospital Course: Date of admission: 04/07/2020 Date of discharge: 04/12/2020 Clarisa Terry is a 60 year old female with a P
== END 2020-04-12 13:05 | disposition home or self-care (01) | DRG 177 ==
LOC: ANHED 18:59 → ANH3MEDSUR 23:56
PROVIDERS: Nurse Practitioner; Physician Assistant; Admitting Provider Internal Medicine; Emergency Provider General Practice; Visit Provider Physician Assistant
DX: U07.1 COVID-19 (principal); J12.89 Other viral pneumonia; B37.0 Candidal stomatitis; T36.95XA Adverse effect of unspecified systemic antibiotic, initial encounter; R09.02 Hypoxemia; G43.909 Migraine, unspecified, not intractable, without status migrainosus; E87.6 Hypokalemia; D47.3 Essential (hemorrhagic) thrombocythemia; F41.1 Generalized anxiety disorder; K21.9 Gastro-esophageal reflux disease without esophagitis; Z87.09 Personal history of other diseases of the respiratory system; Z87.891 Personal history of nicotine dependence; Z90.49 Acquired absence of other specified parts of digestive tract
CPT/HCPCS: 36415; 36600; 71045; 80053; 81001; 82375; 82550; 82728; 82805; 83050; 83605; 83615; 83735; 84484; 85025; 85380; 85610; 85730; 86140; 87040; 87070; 87205; 87635; 93005; 94640; 94667; 94668; 96365; 96367; 96375; 99285; A9270; C9803; J0131; J0456; J0696; J1650; J2405; J3360; U0003

== ENCOUNTER 2024-08-07 15:00 | Outpatient (CLI) | payer OTHER, SELFPAY ==
--- NOTE | ~2024-08-07 | XR_ITS ---
XR hand RT min 3V Ordering provider: Angela Rodriguez MD History: . M25.539 - Pain in unspecified wrist . Comparison: None. FINDINGS: BONES: No acute fracture or dislocation. JOINT SPACES: Osteoarthritic changes of the first carpometacarpal joint. Narrowing of the distal int erphalangeal joints suggestive of osteoarthritic changes. SOFT TISSUES: Normal. IMPRESSION: No acute osseous abnormality right hand. Polyarticular osteoarthritic changes. Reviewed, dictated and finalized at location A.
--- NOTE | ~2024-08-07 | XR_ITS ---
XR hand LT min 3V Ordering provider: Angela Rodriguez MD History: . M25.539 - Pain in unspecified wrist . Comparison: None. FINDINGS: BONES: Small chip fracture is seen anterior to the lunate bone which may be acute or chronic fracture . No acute fracture or dislocation. JOINT SPACES: Narrowing of the distal interphalangeal joints. Osteoarthritic changes of the first car pometacarpal joint. SOFT TISSUES: Unremarkable. IMPRESSION: Small chip fracture anterior to the lunate bone. Clinical evaluation for tenderness in th e area advised. Otherwise, No other acute osseous abnormality left hand. Reviewed, dictated and finalized at location A. IMPRESSION: Small chip fracture anterior to the lunate bone. Clinical evaluatio n for tenderness in the area advised. Otherwise, No other acute osseous abnormality left hand.
== END 2024-08-07 15:01 | disposition home or self-care (01) ==
LOC: ANHIMG 15:03
PROVIDERS: Visit Provider Plastic Surgery
DX: M25.531 Pain in right wrist (principal); S62.102A Fracture of unspecified carpal bone, left wrist, initial encounter for closed fracture; X58.XXXA Exposure to other specified factors, initial encounter
CPT/HCPCS: 73130

== ENCOUNTER 2025-01-15 20:00 | Emergency (ER) | payer OTHER, SELFPAY ==
--- NOTE | ~2025-01-15 | XR_ITS ---
HISTORY: Ring finger injury COMPARISON: 08/07/2024 TECHNIQUE: 3 views of the left hand were performed. FINDINGS: No acute fracture is identified. The joint spaces are preserved. The carpal arcs are intact. Mild radiocarpal joint space narrowing with sclerosis of the distal radius is present. Persistent flexion of the distal phalanx of the fourth digit. Redemonstration of a well-circumscribed 1.5 mm osseous density adjacent to the distal interphalangeal joint space, on the ulnar surface. No acute fracture is appreciated. Bone mineralization is age-appropriate. No significant soft tissue swelling. No radiopaque foreign body is identified. IMPRESSION: Persistent flexure of the distal phalanx of the fourth digit. No acute fracture. Remainder of examination is otherwise unremarkable. Reviewed, dictated and finalized at location A. AGE INSPECTOR
--- OUTSIDE RECORDS SUMMARY | 2025-01-15 20:03 | XMS_ITS | Patient Health Record ---
Author Organization [facility] Billing Info Address [address] [place] [id number] Care Team Providers Care Snow Groomer Name Role Phone JACOB MONCADA [phone] Reason For Referral No Information Immunizations Vaccine Route Administration Date Status Comme nts TB SKIN TEST (PPD) ID Intradermal 05/29/2018 Administered RSS=[id number] Plan Of Treatment No Information
[2025-01-15 20:07] VITALS: BP 174/117; PULSE 97; RESP 20; TEMP 36.1; O2SAT 100
--- NOTE | 2025-01-15 20:56 | ED_ITS ---
HPI - General Adult General Chief complaint: Extremity Injury, Upper Stated complaint: hand injury Time Seen by Provider: 01/15/25 20:12 History of Present Illness HPI narrative: Patient is 62-year-old female presents emergency department with chief complaint finger injury. The patient reports she was at work tripped over a cord and landed on her left hand patient reports that her left ring finger is held with the distal phalanx is held in extension Related Data Home Medications ?Medication ?Instructions ?Recorded ?Confirmed ?Last Taken ?Type amitriptyline 25 mg tablet 25 mg PO TID 04/07/20 04/07/20 Unknown History diazepam 2 mg tablet 2 mg PO Q6-8H PRN Anxiety 04/07/20 04/07/20 Unknown History esomeprazole magnesium 40 mg 40 mg PO DAILY 04/07/20 04/07/20 Unknown History capsule,delayed release mometasone-formoterol HFA 200 2 puff inhalation BID 04/07/20 04/07/20 Unknown History mcg-5 mcg/actuation aerosol inhaler (Dulera) montelukast 10 mg tablet 10 mg PO DAILY 04/07/20 04/07/20 Unknown History tramadol 50 mg tablet 50 mg PO Q6H PRN Pain 04/07/20 04/07/20 Unknown History Allergies Allergy/AdvReac Type Severity Reaction Status Date / Time Sulfa (Sulfonamide Allergy Itching Verified 01/15/25 20:07 Antibiotics) Review of Systems Review of Systems: A 10 system review of systems was completed on the patient and is negative except for what is stated in the HPI. Nursing and ancillary documentation was reviewed. 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 She lives with her who is also registered nurse. She has 2 biological children and her has 2 children as well. The patient desires to be a full code. She desires to have her has been as the power title attorney for healthcare. Patient stated that she smoked when she was in nursing school about half a pack a cigarettes a day. And has quit since then. No alcohol marijuana or illicit drugs. Smoking packs per day: 0.5 Smoking cigarettes per day: 10.0 Years smoked: 5 Smoking pack-years: 2.50 Smoking status: Former smoker Tobacco type: cigarettes Alcohol intake: former Substance use: never Living arrangements: with family Occupation/Education: occupation Gender identity (if verbalized by the patient): Female Spiritual care concerns: No Exam Narrative: GENERAL: Well-appearing, well-nourished, and in no acute distress. HEAD: Normocephalic, atraumatic. EYES: PERRLA and EOMI. ENT: Nares clear, no rhinorrhea or epistaxis. Mucous membranes moist. NECK: Supple. CHEST: Clear to auscultation. No respiratory distress. HEART: Regular rate and rhythm. No murmur heard. Normal peripheral pulses. ABDOMEN: Soft, nontender, nondistended, normal active bowel sounds. EXTREMITIES: Normal range of motion. No edema. Left ring finger distal phalanx is held in flexion SKIN: Warm, dry, no rash. NEURO: No focal deficits. Alert and oriented x3. PSYCH: Normal mood and affect. Course Vital Signs Vital signs: Vital Signs Temperature 36.1 C L 01/15/25 20:07 Pulse Rate 97 01/15/25 20:07 Respiratory Rate 20 01/15/25 20:07 Blood Pressure 174/117 H 01/15/25 20:07 Pulse Oximetry 100 01/15/25 20:07 Oxygen Delivery Room Air 01/15/25 20:07 Temperature 36.1 C L 01/15/25 20:07 Pulse Rate 97 01/15/25 20:07 Respiratory Rate 20 01/15/25 20:07 Blood Pressure 174/117 H 01/15/25 20:07 Pulse Oximetry 100 01/15/25 20:07 Oxygen Delivery Room Air 01/15/25 20:07 Medical Decision Making [facility] Narrative Medical decision making narrative: Differential diagnosis includes fracture, tendon injury Plain film x-rays left hand showed Persistent flexure of the distal phalanx of the fourth digit. No acute fracture. Remainder of examination is otherwise unremarkable. Vital Signs Vital Signs: Vital Signs Temperature 36.1 C L 01/15/25 20:07 Pulse Rate 97 01/15/25 20:07 Respiratory Rate 20 01/15/25 20:07 Blood Pressure 174/117 H 01/15/25 20:07 Pulse Oximetry 100 01/15/25 20:07 Oxygen Delivery Room Air 01/15/25 20:07 Temperature 36.1 C L 01/15/25 20:07 Pulse Rate 97 01/15/25 20:07 Respiratory Rate 20 01/15/25 20:07 Blood Pressure 174/117 H 01/15/25 20:07 Pulse Oximetry 100 01/15/25 20:07 Oxygen Delivery Room Air 01/15/25 20:07 Discharge Plan Discharge Clinical Impression: Acquired mallet finger Patient Disposition: Home, Self-Care Condition: Stable Instructions: Antibiotic Form, Jammed Finger (ED), Splint Care (ED) Additional Instructions: Please follow-up with your hand surgeon is recommended the where a splint on the finger Patient Language: [place] Prescriptions: New alprazolam [Xanax] 1 mg tablet 1 mg PO BID PRN (Reason: anxiety) Qty: 30 0RF tramadol 50 mg tablet 50 mg PO Q6H PRN (Reason: pain) 5 Days Qty: 20 0RF No Action tramadol 50 mg tablet 50 mg PO Q6H PRN (Reason: Pain) amitriptyline 25 mg tablet 25 mg PO TID diazepam 2 mg tablet 2 mg PO Q6-8H PRN (Reason: Anxiety) esomeprazole magnesium 40 mg capsule,delayed release(DR/EC) 40 mg PO DAILY montelukast 10 mg tablet 10 mg PO DAILY Dulera 200-5 mcg/actuation HFA aerosol inhaler 2 puff INHALATION BID albuterol sulfate 90 mcg/actuation HFA aerosol inhaler 2 puff INHALATION QID PRN (Reason: shortness of breath or wheezing) Qty: 6.7 0RF nystatin 100,000 unit/mL Suspension 5 ml PO QID 3 Days Qty: 60 0RF benzonatate 100 mg Capsule 100 mg PO TID PRN (Reason: Cough) Qty: 15 0RF Follow-up/Referrals: Angela Rodriguez MD [Physician] - UNKNOWN,DOCTOR [Primary Care Provider] - Time of Disposition: 22:46
[2025-01-15 22:49] VITALS: BP 165/92; PULSE 77; RESP 18; TEMP 36.7; O2SAT 99
== END 2025-01-15 22:50 | disposition home or self-care (01) ==
PROVIDERS: Emergency Provider Emergency Medicine
DX: M20.012 Mallet finger of left finger(s) (principal); F41.9 Anxiety disorder, unspecified; K21.9 Gastro-esophageal reflux disease without esophagitis; W01.0XXA Fall on same level from slipping, tripping and stumbling without subsequent striking against object, initial encounter
CPT/HCPCS: 73130; 99283